=== PATIENT | female | born 1980 | race Caucasian/White ===

== ENCOUNTER 2018-05-25 00:06 | Emergency (ER) | payer OTHER ==
[2018-05-25 00:16] VITALS: BP 140/95
[2018-05-25 00:29] LABS: BILIRUBIN,URINE NEGATIVE (NEGATIVE); GLUCOSE, URINE (UA) NEGATIVE (NEGATIVE); KETONES,URINE (UA) NEGATIVE (NEGATIVE); LEUKOCYTE ESTERASE, URINE NEGATIVE (NEGATIVE); NITRITE,URINE POSITIVE (NEGATIVE); OCCULT BLOOD,URINE LARGE (NEGATIVE); PROTEIN,URINE >=300 mg/dL (NEGATIVE); UROBILINOGEN,URINE 1 (NORMAL) E.U./dL (NORMAL)
[2018-05-25 00:37] LABS: CLARITY,URINE CLEAR (CLEAR); HCG UR QUAL NEGATIVE
[2018-05-25 00:38] LABS: BACTERIA,URINE Few /HPF (None Seen); SQUAMOUS EPITHELIAL CELL,UR RARE Squamous (<= Few)
[2018-05-25] MEDS ORDERED: levoFLOXacin 250 MG TABLET PO STA (00:45)
[2018-05-25] MEDS ORDERED: ONDANSETRON ODT 4 MG TABLET TL STA (00:45)
[2018-05-25] MEDS ORDERED: oxyCOD/ACETAMIN 5 MG/325 MG TABLET PO STA (00:48)
--- NOTE | 2018-05-25 00:52 | ED Physician Documentation ---
PD HPI FEMALE - Stated complaint Stated Complaint: FEMALE - Chief complaint Chief Complaint: General - History obtained from History obtained from: Patient, Family - History of Present Illness Timing - onset: Today Timing - details: Gradual onset, Still present Associated symptoms: Back pain, Pelvic pain Similar symptoms before: No diagnosis Recently seen: Not recently seen - Additional information Additional information: Patient is a 37 year old female with no significant past medical history who is presenting to the emergency department for dysuria, pelvic pain and back pain. patient states that her symptoms started a few days ago. Patient took over the counter medications and her symptoms seemed to improve. patient reports that today her symptoms came back and they were much worsen. Patient reports nausea back pain and sweats. Review of Systems Ten Systems: 10 systems reviewed and negative Constitutional: reports: Sweats GI: reports: Abdominal Pain, Nausea : reports: Dysuria, Frequency Musculoskeletal: reports: Back pain PD PAST MEDICAL HISTORY - Past Medical History : Other Other Past Medical History: frequent uti - Past Surgical History Past Surgical History: No HEENT: Tonsil/Adenoidectomy - Present Medications Home Medications: Ambulatory Orders Medication Instructions Recorded Confirmed Levofloxacin [Levaquin] 750 mg PO DAILY #4 tablet 05/25/18 Norgestimate-Ethinyl Estradiol 1 tab PO DAILY 05/25/18 05/25/18 [Estarylla 0.25-0.035 mg Tablet] Ondansetron Odt [Zofran] 4 mg TL Q6H PRN #14 tablet 05/25/18 Oxycodone HCl/Acetaminophen 1 - 2 each PO Q6H PRN #7 tablet 05/25/18 [Percocet 5-325 mg Tablet] - Allergies Allergies/Adverse Reactions: Allergies Allergy/AdvReac Type Severity Reaction Status Date / Time No Known Drug Allergies Allergy Verified 05/25/18 00:16 - Social History Does the pt smoke?: No Smoking Status: Never smoker Does the pt drink ETOH?: Yes Does the pt have substance abuse?: No - Immunizations Immunizations are current?: Yes PD ED PE NORMAL - Vitals Vital signs reviewed: Yes - General General: Alert and oriented X 3 - HEENT HEENT: Atraumatic - Cardiac Cardiac: RRR - Respiratory Respiratory: No respiratory distress - Abdomen Abdomen: Soft, Non distended - Extremities Extremities: No deformity - Neuro Neuro: Alert and oriented X 3 PD ED PE EXPANDED - Back Back: CVA TTP right, CVA TTP left - Derm Derm: Diaphoretic Results - Vitals Vitals: Vital Signs - 24 hr 05/25/18 00:15 Temperature 36.5 C Heart Rate 70 Respiratory 20 Rate Blood Pressure 140/95 H O2 Saturation 95 Oxygen O2 Source Room air - Labs Labs: Laboratory Tests 05/25/18 00:19 Urine Color ORANGE Urine Clarity CLEAR Urine pH 6.0 Ur Specific [place] >=1.030 H Urine Protein >=300 H Urine Glucose (UA) NEGATIVE Urine Ketones NEGATIVE Urine Occult Blood LARGE H Urine Nitrite POSITIVE H Urine Bilirubin NEGATIVE Urine Urobilinogen 1 (NORMAL) Ur Leukocyte Esterase NEGATIVE Urine RBC 11-25 H Urine WBC 6-10 H Ur Squamous Epith Cells RARE Squamous Urine Bacteria Few Ur Microscopic Review INDICATED Urine Culture Comments INDICATED Urine HCG, Qual NEGATIVE PD MEDICAL DECISION MAKING - ED course Complexity details: reviewed old records, reviewed results, re-evaluated patient , considered differential, d/w patient, d/w family ED course: Patient was seen and examined at bedside. patient's vital signs were within normal limits. patient's diagnostics and physical exam were consistent with pyelonephritis. Patient was started on antibiotics and pyridium. Patient was able to tolerate PO without difficulty. Patient and family were given detailed discharge and follow up instructions and patient was stable for discharge with outpatient follow up. - Sepsis Event Vital Signs: Vital Signs - 24 hr 05/25/18 00:15 Temperature 36.5 C Heart Rate 70 Respiratory 20 Rate Blood Pressure 140/95 H O2 Saturation 95 Oxygen O2 Source Room air Departure - Departure Disposition: 01 Home, Self Care Clinical Impression: Pyelonephritis Condition: Good Instructions: Pyelonephritis Dc Follow-Up: CALLIE MCCONNELL [Primary Care Provider] - Within 3 Days Prescriptions: Levofloxacin [Levaquin] 750 mg PO DAILY #4 tablet Ondansetron Odt [Zofran] 4 mg TL Q6H PRN #14 tablet PRN Reason: Nausea / Vomiting Oxycodone HCl/Acetaminophen [Percocet 5-325 mg Tablet] 1 - 2 each PO Q6H PRN #7 tablet PRN Reason: pain Comments: Your symptoms today are being caused by a urinary tract infection. you had your first dose of antibiotics today and will need to be on them for the next 4 days. you should stay well hydrated drinking at least 100oz of fluids a day. you can take motrin or tylenol as needed for pain and an occasional percocet for breakthrough pain. you should follow up with your doctor if your symptoms persist. You may return to the emergency department at any time for new, worsening or uncontrollable symptoms.
== END 2018-05-25 01:03 | disposition home or self-care (01) ==
LOC: ED 00:06
DX: N12 Tubulo-interstitial nephritis, not specified as acute or chronic (principal); Z87.440 Personal history of urinary (tract) infections
CPT/HCPCS: 81001; 81025; 87086; 87181; 99283; 99284; A9270; Q0162; 81003

== ENCOUNTER 2023-10-28 07:37 | Outpatient (CLI) | payer OTHER ==
--- NOTE | 2023-10-28 11:00 | MRI Report ---
PROCEDURE: KNEE WO - LT INDICATIONS: PAIN IN LEFT KNEE TECHNIQUE: Noncontrast sagittal PD fast spin echo and T2 fast spin echo with fat saturation, sagittal 3-D gradie nt sequence with fat saturation; coronal T1 spin echo and PD fast spin echo with fat saturation, and axial PD fast spin echo with fat saturation through the knee. COMPARISON: None. FINDINGS: Image quality: Good Menisci Medial: Oblique tear of the posterior horn and body of the medial meniscus, extending close to the ro ot. This also extends to the meniscocapsular junction. There are small para meniscal cysts. Lateral: No discrete tear. There is internal signal abnormality, likely degenerative. Cruciate ligaments: Intact Medial structures MCL: Thickening and periligamentous edema. Pes anserine tendons: Intact Semimembranosus: Intact Lateral structures LCL: Intact Biceps femoris: Intact IT band: Intact Popliteus tendon: Intact Anterior structures Extensor mechanism: Mild to moderate prepatellar edema. There is also mild edema at the quadriceps in sertion as well as proximal patellar tendon. Fat pads: Mild edema in the quadriceps fat pad Medial retinaculum: Intact. Trochlea: Shallow orientation. There is also slight lateral tilt of patella. TT TG distance at the up per limit of normal at 1.5 cm. Bone and joint Bones: No displaced fracture. No dislocation. Cartilage: There is full-thickness fissuring at the median ridge of the patella with mild subchondral edema. Similar focal fissuring is seen in the lateral tibial plateau. There are subchondral edema an d chondral signal abnormality at the nonweightbearing distal femur. No significant defect is seen at this location however. There is also focal edema in the medial tibial plateau. There is partial thick ness loss in the medial compartment cartilage. Joint space: Minimal joint effusion. Gilmore's cyst: None Soft tissues: No significant vascular or other soft tissue pathology. IMPRESSION: Complex, primarily oblique tear of the posterior horn and body of the medial meniscus, extending almo st to the root. This involves the meniscocapsular junction. There are also parameniscal cysts. Intact cruciate ligaments. Thickening and periligamentous edema of the MCL may be reactive to adjacen t meniscal pathology and sequela of old injury. Mild to moderate prepatellar edema, as well as patellar and quadriceps tendinopathy. Mild edema also seen in the quadriceps fat pad. Shallow orientation of the trochlea with mild lateral tilt of the patella. Full-thickness focal cartilage fissuring of the patellar median ridge and lateral tibial plateau, wit h mild subchondral edema. Possible contusion resulting in subchondral edema of the nonweightbearing m edial distal femur and peripheral tibial plateau Minimal joint effusion. Reviewed by: Chivo Abdalla MD on 10/28/2023 10:59 AM [facility] Approved by: Chivo Abdalla MD on 10/28/2023 10:59 AM [facility] Station ID: [id number]
== END 2023-10-28 07:38 | disposition home or self-care (01) ==
LOC: DI 07:37
PROVIDERS: ATTEND Nurse Practitioner Family
DX: S83.232A Complex tear of medial meniscus, current injury, left knee, initial encounter (principal); M23.007 Cystic meniscus, unspecified meniscus, left knee; M67.864 Other specified disorders of tendon, left knee; M94.8X6 Other specified disorders of cartilage, lower leg; M25.462 Effusion, left knee